=== PATIENT | male | born 1965 | race Caucasian/White ===

== ENCOUNTER → 2019-11-17 | Outpatient (CLI) | payer OTHER | LOC: CAT 15:00 | PROVIDERS: ATTEND Internal Medicine Cardiovascular Disease | DX: Z12.6 Encounter for screening for malignant neoplasm of bladder (principal); E78.00 Pure hypercholesterolemia, unspecified; I25.10 Atherosclerotic heart disease of native coronary artery without angina pectoris ==

== ENCOUNTER → 2020-09-02 | Outpatient (CLI) | payer BC | LOC: SJCVCIMAG 07:30 | PROVIDERS: ATTEND Internal Medicine Cardiovascular Disease | DX: Z01.810 Encounter for preprocedural cardiovascular examination (principal); I48.91 Unspecified atrial fibrillation; R07.9 Chest pain, unspecified; R06.00 Dyspnea, unspecified; R51.9 Headache, unspecified; R10.9 Unspecified abdominal pain ==